=== PATIENT | female | born 1975 | race Caucasian/White ===

== ENCOUNTER 2016-09-18 00:37 | Emergency (ER) | payer MEDICARE ==
[2014-07-23 22:38] VITALS: BMI 34.0
[~2016-09-18 00:37] MED LIST: DEPAKOTE250 MG PO; DEPAKOTE500 MG PO; KLONOPIN1 MG PO; PAXIL20 MG PO; PRILOSEC20 MG PO; RESTORIL15 MG PO; TEGRETOL 100 M100 MG PO; TOFRANIL25 MG PO
[2016-09-18 01:45] LABS: BASOPHILS 0.3 % (0-2); EOSINOPHILS 2.1 % (0-7); HEMATOCRIT 40.1 % (36.0-48.0); HEMOGLOBIN 13.4 g/dL (12-16); IMMATURE GRANULOCYTES 0.2 % (0-5); LYMPHOCYTES 47.8 % (15-50); MCH 32.1 pg (26.0-34.0); MCHC 33.4 g/dL (31.0-37.0); MCV 95.9 fL (80.0-100.0); MEAN PLATELET VOLUME 10.4 fL (7.4-10.4); MONOCYTES 6.7 % (2-11); NEUTROPHILS 42.9 % (40-80); PLATELET COUNT 311 10x3/uL (130-400); RBC 4.18 10x6/uL (4.00-5.40); RDW 13.1 % (11.5-14.5); WBC 10.1 10x3/uL (4.8-10.8)
[2016-09-18 01:56] LABS: ALBUMIN 3.3 g/dL (3.4-5.0); ALKALINE PHOSPHATASE 67 U/L (46-116); ALT (SGPT) 17 U/L (10-68); CALC OSMOLALITY 277 mosm/kg (275-300); CALCIUM 8.6 mg/dL (8.5-10.1); CARBON DIOXIDE 28.8 mmol/L (21.0-32.0); CHLORIDE - SERUM 104 mmol/L (98-107); CREATININE - SERUM 0.7 mg/dL (0.6-1.3); GLUCOSE 101 mg/dL (74-106); POTASSIUM - SERUM 3.4 mmol/L (3.5-5.1); PROTEIN - SERUM 7.2 g/dL (6.4-8.2); SODIUM 141 mmol/L (136-145); UREA NITROGEN 4 mg/dL (7-18); eGFR NON AFRICAN AMERICAN > 90 mL/min (90-120)
[2016-09-18 01:57] LABS: HCG SERUM POSITIVE (NEGATIVE)
[2016-09-18 02:05] LABS: CREATINE KINASE 156 UL (21-215); TROPONIN-I < 0.017 ng/mL (0.000-0.060); VALPROIC ACID (DEPAKOTE) 65.2 ug/mL (50.0-100.0)
[2016-09-18 02:38] LABS: APPEARANCE CLEAR (CLEAR); BILIRUBIN NEGATIVE (NEGATIVE); COLOR YELLOW (YELLOW); GLUCOSE NEGATIVE (NEGATIVE); KETONE SMALL mg/dL (NEGATIVE); LEUKOCYTE ESTERASE NEGATIVE (NEGATIVE); NITRITE NEGATIVE (NEGATIVE); PROTEIN NEGATIVE (NEGATIVE); SPECIFIC GRAVITY 1.015 (1.005-1.020); UROBILINOGEN NORMAL (NORMAL)
[2016-09-18 02:52] LABS: UDS - AMPHET POSITIVE QUAL (NEGATIVE); UDS - BARB NEGATIVE QUAL (NEGATIVE); UDS - BENZO POSITIVE QUAL (NEGATIVE); UDS - COCAINE NEGATIVE QUAL (NEGATIVE); UDS - METH NEGATIVE QUAL (NEGATIVE); UDS - OPIATE NEGATIVE QUAL (NEGATIVE); UDS - PCP NEGATIVE QUAL (NEGATIVE); UDS - THC POSITIVE QUAL (NEGATIVE)
== END 2016-09-18 05:00 | disposition home or self-care (01) ==
LOC: D.ER 00:37
PROVIDERS: Family Medicine; Physician Assistant
DX: R55 Syncope and collapse (principal); R53.1 Weakness; R56.9 Unspecified convulsions; R63.4 Abnormal weight loss; F32.9 Major depressive disorder, single episode, unspecified; F41.9 Anxiety disorder, unspecified; F17.200 Nicotine dependence, unspecified, uncomplicated

== ENCOUNTER 2017-03-29 13:54 | Emergency (ER) | payer MEDICARE ==
[2014-07-23 22:38] VITALS: BMI 34.0
== END 2017-03-29 16:45 | disposition home or self-care (01) ==
LOC: D.ER 13:54
DX: K52.9 Noninfective gastroenteritis and colitis, unspecified (principal); R11.10 Vomiting, unspecified

== ENCOUNTER 2017-10-04 12:07 | Emergency (ER) | payer MEDICARE ==
[2014-07-23 22:38] VITALS: BMI 34.0
[2017-10-04 12:41] LABS: BASOPHILS 0.3 % (0-2); EOSINOPHILS 2.2 % (0-7); HEMOGLOBIN 14.3 g/dL (12-16); IMMATURE GRANULOCYTES 0.2 % (0-5); LYMPHOCYTES 40.5 % (15-50); MCH 32.8 pg (26.0-34.0); MCHC 34.9 g/dL (31.0-37.0); MONOCYTES 5.2 % (2-11); NEUTROPHILS 51.6 % (40-80); PLATELET COUNT 288 10x3/uL (130-400); RBC 4.36 10x6/uL (4.00-5.40); RDW 12.4 % (11.5-14.5); WBC 9.3 10x3/uL (4.8-10.8)
[2017-10-04 12:49] LABS: AMYLASE - SERUM 70 U/L (25-115); LIPASE 201 U/L (73-393)
[2017-10-04 13:15] LABS: ALBUMIN 3.5 g/dL (3.4-5.0); ANION GAP 12.3 mmol/L (8-16); CALCIUM 9.1 mg/dL (8.5-10.1); CARBON DIOXIDE 27.1 mmol/L (21.0-32.0); CREATININE - SERUM 0.9 mg/dL (0.6-1.3); POTASSIUM - SERUM 4.4 mmol/L (3.5-5.1); PROTEIN - SERUM 7.1 g/dL (6.4-8.2)
[2017-10-04 13:16] LABS: BILIRUBIN - TOTAL 0.08 mg/dL (0.2-1.3)
[2017-10-04 13:48] LABS: APPEARANCE CLEAR (CLEAR); BILIRUBIN NEGATIVE (NEGATIVE); COLOR YELLOW (YELLOW); GLUCOSE NEGATIVE (NEGATIVE); KETONE NEGATIVE (NEGATIVE); NITRITE NEGATIVE (NEGATIVE); PROTEIN NEGATIVE (NEGATIVE); UROBILINOGEN NORMAL (NORMAL)
== END 2017-10-04 15:07 | disposition home or self-care (01) ==
LOC: D.ER 12:07
PROVIDERS: Family Medicine; Nurse Practitioner Family
DX: K52.9 Noninfective gastroenteritis and colitis, unspecified (principal); R11.10 Vomiting, unspecified; G40.909 Epilepsy, unspecified, not intractable, without status epilepticus; F17.200 Nicotine dependence, unspecified, uncomplicated

== ENCOUNTER 2018-02-19 16:46 | Emergency (ER) | payer MEDICARE ==
[~2018-02-19] VITALS: Ht 154.9 cm; Wt 75.0 kg
[2018-02-19 17:04] VITALS: Ht 154.9 cm; Wt 75.0 kg
[2018-02-19 17:29] LABS: BASOPHILS 0.3 % (0-2); EOSINOPHILS 2.8 % (0-7); HEMATOCRIT 37.7 % (36.0-48.0); HEMOGLOBIN 12.6 g/dL (12-16); IMMATURE GRANULOCYTES 0.1 % (0-5); LYMPHOCYTES 40.8 % (15-50); MCH 31.3 pg (26.0-34.0); MCHC 33.4 g/dL (31.0-37.0); MCV 93.8 fL (80.0-100.0); MEAN PLATELET VOLUME 9.8 fL (7.4-10.4); MONOCYTES 4.7 % (2-11); NEUTROPHILS 51.3 % (40-80); PLATELET COUNT 288 10x3/uL (130-400); RBC 4.02 10x6/uL (4.00-5.40); RDW 12.8 % (11.5-14.5); WBC 10.4 10x3/uL (4.8-10.8)
[2018-02-19 17:52] LABS: ALBUMIN 3.2 g/dL (3.4-5.0); ANION GAP 9.3 mmol/L (8-16); APPEARANCE CLEAR (CLEAR); BILIRUBIN NEGATIVE (NEGATIVE); BILIRUBIN - TOTAL 0.12 mg/dL (0.2-1.3); CALCIUM 8.4 mg/dL (8.5-10.1); CARBON DIOXIDE 27.4 mmol/L (21.0-32.0); COLOR YELLOW (YELLOW); CREATININE - SERUM 0.9 mg/dL (0.6-1.3); GLUCOSE NEGATIVE (NEGATIVE); KETONE NEGATIVE (NEGATIVE); NITRITE NEGATIVE (NEGATIVE); POTASSIUM - SERUM 3.7 mmol/L (3.5-5.1); PROTEIN NEGATIVE (NEGATIVE); UROBILINOGEN NORMAL (NORMAL)
[2018-02-19] MEDS ORDERED: ULTRAM50 MG PO (19:16)
[2018-02-19] MEDS ORDERED: FLOMAX0.4 MG PO (19:18)
[2018-02-19 19:26] VITALS: BP 97/47
== END 2018-02-19 19:37 | disposition home or self-care (01) ==
LOC: D.ER 16:46
PROVIDERS: Emergency Medicine
DX: N20.0 Calculus of kidney (principal); G40.909 Epilepsy, unspecified, not intractable, without status epilepticus; K21.9 Gastro-esophageal reflux disease without esophagitis; F17.200 Nicotine dependence, unspecified, uncomplicated

== ENCOUNTER 2018-04-07 17:25 | Emergency (ER) | payer MEDICARE ==
[~2018-04-07] VITALS: Ht 154.9 cm; Wt 70.5 kg
[~2018-04-07 17:25] MED LIST changes: +FLOMAX0.4 MG PO; +ULTRAM50 MG PO
[2018-04-07 17:29] VITALS: Ht 154.9 cm; Wt 70.5 kg
[2018-04-07 18:03] LABS: APPEARANCE CLEAR (CLEAR); BILIRUBIN NEGATIVE (NEGATIVE); COLOR YELLOW (YELLOW); GLUCOSE NEGATIVE (NEGATIVE); KETONE NEGATIVE (NEGATIVE); NITRITE NEGATIVE (NEGATIVE); PROTEIN NEGATIVE (NEGATIVE); SPECIFIC GRAVITY 1.015 (1.005-1.020); UROBILINOGEN NORMAL (NORMAL)
[2018-04-07 18:04] LABS: BASOPHILS 0.1 % (0-2); EOSINOPHILS 3.9 % (0-7); HEMATOCRIT 36.6 % (36.0-48.0); HEMOGLOBIN 12.5 g/dL (12-16); IMMATURE GRANULOCYTES 0.3 % (0-5); LYMPHOCYTES 32.9 % (15-50); MCH 31.8 pg (26.0-34.0); MCHC 34.2 g/dL (31.0-37.0); MCV 93.1 fL (80.0-100.0); MEAN PLATELET VOLUME 9.8 fL (7.4-10.4); MONOCYTES 5.1 % (2-11); NEUTROPHILS 57.7 % (40-80); PLATELET COUNT 260 10x3/uL (130-400); RBC 3.93 10x6/uL (4.00-5.40); RDW 12.9 % (11.5-14.5); WBC 7.2 10x3/uL (4.8-10.8)
[2018-04-07 18:16] LABS: ALBUMIN 3.1 g/dL (3.4-5.0); ALKALINE PHOSPHATASE 90 U/L (46-116); ALT (SGPT) 23 U/L (10-68); BILIRUBIN - TOTAL 0.21 mg/dL (0.2-1.3); CALC OSMOLALITY 278 mosm/kg (275-300); CALCIUM 8.5 mg/dL (8.5-10.1); CARBON DIOXIDE 29.9 mmol/L (21.0-32.0); CHLORIDE - SERUM 104 mmol/L (98-107); CREATININE - SERUM 0.8 mg/dL (0.6-1.3); GLUCOSE 129 mg/dL (74-106); POTASSIUM - SERUM 3.6 mmol/L (3.5-5.1); PROTEIN - SERUM 6.9 g/dL (6.4-8.2); SODIUM 140 mmol/L (136-145); UREA NITROGEN 8 mg/dL (7-18); eGFR NON AFRICAN AMERICAN 83 mL/min (90-120)
[2018-04-07 18:20] LABS: AMYLASE - SERUM 45 U/L (25-115); LIPASE 173 U/L (73-393)
[2018-04-07 18:21] LABS: TROPONIN-I < 0.017 ng/mL (0.000-0.060)
[2018-04-07 19:39] VITALS: BP 128/85
== END 2018-04-07 19:35 | disposition home or self-care (01) ==
LOC: D.ER 17:25
PROVIDERS: Family Medicine
DX: K52.9 Noninfective gastroenteritis and colitis, unspecified (principal); D68.59 Other primary thrombophilia; K76.89 Other specified diseases of liver; F17.200 Nicotine dependence, unspecified, uncomplicated

== ENCOUNTER 2018-05-24 17:37 | Emergency (ER) | payer MEDICARE ==
[~2018-05-24] VITALS: Ht 154.9 cm; Wt 77.3 kg
[2018-05-24 17:58] VITALS: Ht 154.9 cm; Wt 77.3 kg
[2018-05-24] MEDS ORDERED: DILANTIN100 MG PO (18:01)
[2018-05-24] MEDS ORDERED: CLEOCIN HCL300 MG PO (20:04)
[2018-05-24] MEDS ORDERED: TORADOL10 MG PO (20:04)
[2018-05-24 20:44] VITALS: BP 131/87
== END 2018-05-24 20:45 | disposition home or self-care (01) ==
LOC: D.ER 17:37
DX: S02.5XXA Fracture of tooth (traumatic), initial encounter for closed fracture (principal); X58.XXXA Exposure to other specified factors, initial encounter; Y93.89 Activity, other specified; Y92.019 Unspecified place in single-family (private) house as the place of occurrence of the external cause; K02.9 Dental caries, unspecified; K08.89 Other specified disorders of teeth and supporting structures; G40.909 Epilepsy, unspecified, not intractable, without status epilepticus; F17.200 Nicotine dependence, unspecified, uncomplicated

== ENCOUNTER 2018-05-27 01:10 | Emergency (ER) | payer MEDICARE ==
[~2018-05-27] VITALS: Ht 154.9 cm; Wt 75.0 kg
[~2018-05-27 01:10] MED LIST changes: +CLEOCIN HCL300 MG PO; +DILANTIN100 MG PO; +TORADOL10 MG PO
[2018-05-27 01:14] VITALS: Ht 154.9 cm; Wt 75.0 kg
[2018-05-27] MEDS ORDERED: DEPAKOTE500 MG (01:17)
[2018-05-27] MEDS ORDERED: LAMICTAL25 MG (01:17)
[2018-05-27 01:50] LABS: BASOPHILS 0.3 % (0-2); EOSINOPHILS 3.5 % (0-7); HEMOGLOBIN 11.7 g/dL (12-16); IMMATURE GRANULOCYTES 0.1 % (0-5); LYMPHOCYTES 45.6 % (15-50); MCH 31.7 pg (26.0-34.0); MCHC 33.4 g/dL (31.0-37.0); MCV 94.9 fL (80.0-100.0); NEUTROPHILS 45.5 % (40-80); PLATELET COUNT 288 10x3/uL (130-400); RBC 3.69 10x6/uL (4.00-5.40); RDW 13.3 % (11.5-14.5); WBC 9.7 10x3/uL (4.8-10.8)
[2018-05-27 01:58] LABS: ALKALINE PHOSPHATASE 68 U/L (46-116); ALT (SGPT) 36 U/L (10-68); AMYLASE - SERUM 56 U/L (25-115); BILIRUBIN - TOTAL 0.24 mg/dL (0.2-1.3); CALCIUM 8.1 mg/dL (8.5-10.1); CREATININE - SERUM 0.8 mg/dL (0.6-1.3); GLUCOSE 110 mg/dL (74-106); LIPASE 252 U/L (73-393); PROTEIN - SERUM 6.5 g/dL (6.4-8.2); UREA NITROGEN 11 mg/dL (7-18); eGFR NON AFRICAN AMERICAN 83 mL/min (90-120)
[2018-05-27 02:10] LABS: CALC OSMOLALITY 282 mosm/kg (275-300); CHLORIDE - SERUM 106 mmol/L (98-107); POTASSIUM - SERUM 3.9 mmol/L (3.5-5.1); SODIUM 142 mmol/L (136-145)
[2018-05-27 02:20] LABS: APPEARANCE CLEAR (CLEAR); BILIRUBIN NEGATIVE (NEGATIVE); COLOR YELLOW (YELLOW); GLUCOSE NEGATIVE (NEGATIVE); KETONE SMALL mg/dL (NEGATIVE); NITRITE NEGATIVE (NEGATIVE); PROTEIN NEGATIVE (NEGATIVE); SPECIFIC GRAVITY 1.015 (1.005-1.020); UROBILINOGEN NORMAL (NORMAL)
[2018-05-27 02:32] LABS: UDS - AMPHET NEGATIVE QUAL (NEGATIVE); UDS - BARB NEGATIVE QUAL (NEGATIVE); UDS - BENZO NEGATIVE QUAL (NEGATIVE); UDS - COCAINE NEGATIVE QUAL (NEGATIVE); UDS - OPIATE NEGATIVE QUAL (NEGATIVE); UDS - PCP NEGATIVE QUAL (NEGATIVE); UDS - THC POSITIVE QUAL (NEGATIVE)
[2018-05-27] MEDS ORDERED: ZOFRAN4 MG PO (03:53)
[2018-05-27 06:55] VITALS: BP 126/77
== END 2018-05-27 06:58 | disposition home or self-care (01) ==
LOC: D.ER 01:10
PROVIDERS: Family Medicine
DX: R10.13 Epigastric pain (principal); R11.10 Vomiting, unspecified; G40.909 Epilepsy, unspecified, not intractable, without status epilepticus

== ENCOUNTER 2020-07-25 21:28 | Emergency (ER) | payer MEDICARE ==
[~2020-07-25] VITALS: Ht 154.9 cm; Wt 77.3 kg
[~2020-07-25 21:28] MED LIST changes: +DEPAKOTE500 MG; +LAMICTAL25 MG; +ZOFRAN4 MG PO
[2020-07-25 21:34] VITALS: BP 145/78; Ht 154.9 cm; Wt 77.3 kg
[2020-07-25] MEDS ORDERED: OMEPRAZOLE20 M1 PO (21:37)
[2020-07-25] MEDS ORDERED: SEROQUEL50 MG PO (21:37)
[2020-07-25] MEDS ORDERED: CEPHALEXIN500 M1 PO (22:48)
== END 2020-07-25 23:20 | disposition home or self-care (01) ==
LOC: D.ER 21:28
DX: S51.812A Laceration without foreign body of left forearm, initial encounter (principal); W45.8XXA Other foreign body or object entering through skin, initial encounter; Y93.9 Activity, unspecified; Y92.9 Unspecified place or not applicable; K21.9 Gastro-esophageal reflux disease without esophagitis